=== PATIENT | female | born 1980 | race Caucasian/White ===

== ENCOUNTER 2025-01-03 12:02 | Emergency (ER) | payer OTHER ==
[~2025-01-03] VITALS: Ht 160 cm; Wt 76.2 kg
[~2025-01-03 12:02] MED LIST: BIRTH CONTROL1 EAC1; CLARITIN-D 12 H1 TAB PO; CLARITIN10 MG PO; DIFLUCAN150 MG PO; LEVOFLOXACIN500 MG PO; PROBIOTIC1 EAC2 PO; VITAMIN B 12 PO; VITAMIN D-32000 UNIT PO
[2025-01-03] MEDS ORDERED: diazePAM 2 MG TAB PO ONE (12:20)
[2025-01-03 12:31] LABS: BASO # 0.0 10*3/uL (0.0-0.1); BASO % 0.5 % (0.0-1.0); EOS # 0.1 10*3/uL (0.0-0.4); EOS % 1.0 % (1.0-4.0); MEAN CELL VOLUME 89.3 fl (81.0-99.0); MEAN CORPUSCULAR HGB 30.4 pg (27.0-31.0); MEAN PLATELET VOLUME 9.6 fl (9.6-12.3); MONO # 0.3 10*3/uL (0.1-1.0); MONO % 3.8 % (3.0-9.0); NEUT # 5.8 10*3/uL (2.3-7.9); NEUT % 71.3 % (47.0-73.0); NUCLEATED RED BLOOD CELL 0.0 % (0.0-0.0); NUCLEATED RED BLOOD CELL 0.0 10*3/uL (0.0-0.0); PLATELET COUNT AUTOMATED 298 10*3/uL (130-400); RED CELL DISTRI WIDTH 12.5 % (0-14.5)
[2025-01-03 12:32] LABS: BILIRUBIN Negative (Negative); BLOOD Negative (Negative); CLARITY Clear (Clear); COLOR Yellow (Yellow); KETONE Negative (Negative); LEUKO ESTERASE 1+ (Negative); NITRITE Negative (Negative); PH 6.5 (4.5-8.0); SPECIFIC GRAVITY <= 1.005 (1.001-1.030); UROBILINOGEN 0.2 E.U./dl (0.0-1.0)
[2025-01-03 12:39] LABS: URINE AMPHETAMINES Negative (1000ng/ml); URINE BARBITURATES Negative (200ng/ml); URINE BENZODIAZEPINES Negative (200ng/ml); URINE CANNABINOIDS (THC) Negative (50ng/ml); URINE COCAINE Negative (300ng/ml); URINE METHADONE Negative (300ng/ml); URINE OPIATES Negative (300ng/ml); URINE PHENCYCLIDINE Negative (25ng/ml)
[2025-01-03 12:40] LABS: ACT PARTIAL THROMBO TIME 25.8 SECONDS (20.0-32.1)
[2025-01-03 12:46] LABS: BACTERIA 2+; WBC 16-20 wbc/hpf (0-5)
[2025-01-03] MEDS ORDERED: POTASSIUM CHLO20 ME4 PO (12:55)
[2025-01-03] MEDS ORDERED: SYNTHROID,LEV125 MCG PO (12:55)
[2025-01-03] MEDS ORDERED: CALCITRIOL0.5 MCG PO (12:55)
[2025-01-03] MEDS ORDERED: HYDROCHLOROTHIA25 M1 PO (12:56)
[2025-01-03 13:06] LABS: BUN 14 mg/dl (9-23); CPK 104 U/L (34-171); SGPT/ALT 12 U/L (5-49)
[2025-01-03 13:08] LABS: ETHYL ALCOHOL < 3.0 mg/dl (<3)
[2025-01-03] MEDS ORDERED: ACETAMINOPHEN 325 MG TAB PO ONE (13:15)
[2025-01-06] MEDS ORDERED: ATIVAN0.5 MG PO (16:15)
== END 2025-01-03 16:37 ==
LOC: ED 12:02
PROVIDERS: Internal Medicine
DX: F43.21 Adjustment disorder with depressed mood (principal); Z88.0 Allergy status to penicillin; Z88.8 Allergy status to other drugs, medicaments and biological substances